=== PATIENT | male | born 1965 | race Caucasian/White ===

== ENCOUNTER 2016-10-08 14:27 | Emergency (ER) | payer MEDICAID ==
[~2016-10-08] VITALS: Ht 185.4 cm; Wt 86.2 kg
--- NOTE | 2016-10-08 14:35 | NUR ---
PT BIB ANXIETY, WORSENING THIS MORNING. VSS. AWAITING MD ORDER
[2016-10-08] MEDS ORDERED: LORAZEPAM 1 MG TABLET PO ONE (15:00)
[2016-10-08] MEDS ORDERED: LORAZEPAM 1 MG TABLET ONE (15:15)
--- NOTE | 2016-10-08 15:31 | NUR ---
Patient discharged to home in stable condition. Written and verbal after care instructions given. Patient verbalizes understanding of instruction.
[2016-10-08 15:33] VITALS: BP 128/85
== END 2016-10-08 15:33 | disposition home or self-care (01) ==
LOC: ER 14:31
DX: F41.9 Anxiety disorder, unspecified (principal); F32.9 Major depressive disorder, single episode, unspecified
CPT/HCPCS: A4606; Z7610

== ENCOUNTER 2016-10-15 07:40 | Emergency (ER) | payer MEDICAID ==
[~2016-10-15] VITALS: Ht 185.4 cm; Wt 86.2 kg
--- NOTE | 2016-10-15 07:50 | NUR ---
AAOX3, BIB MOM TO ER C/O FREQUENT ANXIETY, TOOK 1 MG OF ATIVAN PO EMERGENCY DEPARTMENT. PATIENT WAS SEEN LAST WEEK FOR SAME REASON AND WAS GIVEN PRESCRIPTION OF ATIVAN SOMEHOW PATIENT STATES THAT ATIVAN DOESN'T WORK FOR HIM RR IS EVEN AND UNLABORED WITH NAD NOTED. SKIN IS WARM AND NON DIAPHORETIC. DENIES SI/HI. DR LOPEZ AT BS FOR EVAL.
[2016-10-15] MEDS ORDERED: LORAZEPAM 1 MG TABLET ONE (07:51)
--- NOTE | 2016-10-15 07:59 | NUR ---
Patient discharged to home in stable condition. Written and verbal after care instructions given. Patient verbalizes understanding of instruction.
[2016-10-15 08:00] VITALS: BP 128/85
[2016-10-15] MEDS ORDERED: LORAZEPAM 1 MG TABLET PO ONE (08:00)
== END 2016-10-15 08:03 | disposition home or self-care (01) ==
LOC: ER 07:42
DX: F41.9 Anxiety disorder, unspecified (principal); F32.9 Major depressive disorder, single episode, unspecified
CPT/HCPCS: A4606; Z7610